=== PATIENT | female | born 1990 | race Caucasian/White ===

== ENCOUNTER 2016-11-04 23:03 | Emergency (ER) | payer MEDICAID, OTHER ==
[~2016-11-04] VITALS: Ht 154.9 cm; Wt 47.6 kg
[~2016-11-04 23:03] MED LIST: ACYCLOVIR200 MG PO; AMPICILLIN250 MG PO; CALCIUM CARBON650 MG PO; D O S100 MG PO; FE-TABS325 MG PO; PRENATAL1 TA1 PO
[2016-11-04 23:07] VITALS: BP 120/83
--- NOTE | 2016-11-04 23:12 | NUR ---
PATIENT TO ER BED 8
--- NOTE | 2016-11-04 23:25 | NUR ---
26Y F BIB [facility]ILY C/O OF LT UPPER ARM PAIN, 5/10 PAIN SCALE. RADIATING TO FA AND HAND. V/S WNL.
[2016-11-04 23:31] VITALS: BP 120/83
--- NOTE | 2016-11-04 23:33 | NUR ---
Patient discharged with v/s stable. Written and verbal after care instructions given and explained by Dr. Bates Patient alert, oriented and verbalized understanding of instructions. Ambulatory with steady gait. All questions addressed prior to discharge. ID band removed. Patient advised to follow up with PMD. Rx of Robaxin and Motrin given. Patient educated on indication of medication including possible reaction and side effects. Opportunity to ask questions provided and answered.
== END 2016-11-04 23:33 | disposition home or self-care (01) ==
LOC: MED 23:03
DX: R52 Pain, unspecified (principal)